=== PATIENT | male | born 1955 | race Caucasian/White ===

== ENCOUNTER → 2017-08-07 | Outpatient (CLI) | payer BC ==
[~2017-08-07] MED LIST: KEFLEX500 MG PO; LISINOPRIL10 MG PO
== END | disposition home or self-care (01) ==
LOC: CDC 11:35
DX: I45.4 Nonspecific intraventricular block (principal)
CPT/HCPCS: 93000

== ENCOUNTER 2017-08-23 18:22 | Observation (INO) | payer BC ==
[~2017-08-23] VITALS: Ht 170.2 cm; Wt 91.0 kg
[2017-08-23 18:43] LABS: HEMATOCRIT 37.8 % (38.0-50.0); MCH 29.2 PG (29.0-34.0); MCHC 33.6 G/DL (30.0-36.0); MCV 86.9 FL (86-99); MEAN PLAT.VOLUME 9.2 uM^3 (9.0-12.4); PLATELET COUNT 195 K/uL (156-360); RBC DIS.WIDTH-CV 12.1 % (11.8-14.6); RBC DIS.WIDTH-SD 38.9 % (39-53); RED BLOOD COUNT 4.35 M/uL (4.00-5.50); WHITE BLOOD COUNT 6.5 K/uL (4.1-10.2)
[2017-08-23 18:55] LABS: CHLORIDE 109 mEq/L (99-109); POTASSIUM 3.8 mEq/L (3.7-5.4); SODIUM 142 mEq/L (136-147)
[2017-08-23 18:57] LABS: GLUCOSE 164 mg/dL (70-99)
[2017-08-23 18:58] LABS: ANION GAP 11 MEQ/L (2-14)
[2017-08-23 19:00] LABS: GFR ESTIMATE (CALCULATED) > 59 mL/min/
[2017-08-23 19:01] LABS: UREA NITROGEN (BUN) 28 mg/dL (9-23)
[2017-08-23 19:07] LABS: TROP-I INTERPRETATION NEGATIVE; TROPONIN-I < 0.01 ng/mL (0.0-0.30)
[2017-08-23] MEDS ORDERED: LO-DOSE ASPIRIN81 M2 PO (19:36)
[2017-08-23] MEDS ORDERED: HYTRIN5 MG PO (19:36)
[2017-08-24 00:11] LABS: TOTAL BILIRUBIN 0.3 mg/dL (0.0-1.0)
[2017-08-24 00:12] LABS: ALKALINE PHOSPHATASE 52 IU/L (3-129)
[2017-08-24 00:15] VITALS: BP 139/78
[2017-08-24 00:15] LABS: DIRECT BILIRUBIN 0.1 mg/dL (0.0-0.3)
[2017-08-24 01:23] LABS: AMPHETAMINE NEGATIVE (500 ng/mL); BARBITURATES NEGATIVE (200 ng/mL); BENZODIAZEPINES NEGATIVE (150 ng/mL); COCAINE NEGATIVE (150 ng/mL); INTERNAL CONTROLS VALID? YES; METHADONE NEGATIVE (200 ng/mL); METHAMPHETAMINE NEGATIVE (500 ng/mL); OPIATES (MORPHINE) NEGATIVE (100 ng/mL); OXYCODONE NEGATIVE (100 ng/mL); PHENCYCLIDINE NEGATIVE (25 ng/mL); PROPOXYPHENE NEGATIVE (300 ng/mL); THC CANNABINOIDS NEGATIVE (50 ng/mL); TRICYCLIC ANTIDEPRESSANTS NEGATIVE (300 ng/mL)
[2017-08-24 02:10] LABS: TROP-I INTERPRETATION NEGATIVE; TROPONIN-I 0.01 ng/mL (0.0-0.30)
[2017-08-24 04:00] VITALS: BP 137/76
[2017-08-24 07:13] LABS: HEMATOCRIT 38.6 % (38.0-50.0); MCH 30.1 PG (29.0-34.0); MCHC 33.9 G/DL (30.0-36.0); MCV 88.7 FL (86-99); MEAN PLAT.VOLUME 9.2 uM^3 (9.0-12.4); PLATELET COUNT 180 K/uL (156-360); RBC DIS.WIDTH-CV 12.5 % (11.8-14.6); RBC DIS.WIDTH-SD 40.9 % (39-53); RED BLOOD COUNT 4.35 M/uL (4.00-5.50); WHITE BLOOD COUNT 5.9 K/uL (4.1-10.2)
[2017-08-24 07:35] LABS: ANION GAP 4 MEQ/L (2-14); CHLORIDE 112 MEQ/L (99-109); GFR ESTIMATE (CALCULATED) > 59 mL/min/; POTASSIUM 3.9 MEQ/L (3.7-5.4); SAMPLE HEMOLYSIS CHECK 0; SAMPLE ICTERIC CHECK 0; SAMPLE LIPEMIA CHECK 0; SODIUM 144 MEQ/L (136-147); UREA NITROGEN (BUN) 18 mg/dL (9-23)
[2017-08-24 07:36] LABS: GLUCOSE 74 mg/dL (70-99)
[2017-08-24 07:40] LABS: TROP-I INTERPRETATION NEGATIVE; TROPONIN-I 0.02 ng/mL (0.0-0.30)
[2017-08-24 11:05] VITALS: BP 156/90
[2017-08-24 15:42] VITALS: BP 123/75
[2017-08-24 19:30] VITALS: BP 126/73
[2017-08-25 00:57] VITALS: BP 122/62
[2017-08-25 02:49] VITALS: BP 124/60
[2017-08-25 06:05] LABS: HEMATOCRIT 40.1 % (38.0-50.0); MCH 29.5 PG (29.0-34.0); MCHC 33.4 G/DL (30.0-36.0); MCV 88.3 FL (86-99); MEAN PLAT.VOLUME 9.4 uM^3 (9.0-12.4); PLATELET COUNT 201 K/uL (156-360); RBC DIS.WIDTH-CV 12.5 % (11.8-14.6); RBC DIS.WIDTH-SD 40.5 % (39-53); RED BLOOD COUNT 4.54 M/uL (4.00-5.50); WHITE BLOOD COUNT 6.1 K/uL (4.1-10.2)
[2017-08-25 06:27] LABS: ANION GAP 7 MEQ/L (2-14); CHLORIDE 108 MEQ/L (99-109); GFR ESTIMATE (CALCULATED) > 59 mL/min/; GLUCOSE 82 mg/dL (70-99); SAMPLE HEMOLYSIS CHECK 0; SAMPLE ICTERIC CHECK 0; SAMPLE LIPEMIA CHECK 0; SODIUM 143 MEQ/L (136-147); UREA NITROGEN (BUN) 18 mg/dL (9-23)
[2017-08-25 08:00] VITALS: BP 164/74
[2017-08-25] MEDS ORDERED: LISINOPRIL10 MG PO (10:58)
[2017-08-25 11:22] VITALS: BP 141/83
== END 2017-08-25 12:48 | disposition home or self-care (01) ==
LOC: EME → EDBD 18:22 → EDOF 22:21 → ENRESERV 22:24 → 4EAST 08-24 00:18
PROVIDERS: Emergency Medicine; Hospitalist; Internal Medicine
DX: R55 Syncope and collapse (principal); I46.9 Cardiac arrest, cause unspecified; I95.2 Hypotension due to drugs; T44.6X5A Adverse effect of alpha-adrenoreceptor antagonists, initial encounter; T46.4X5A Adverse effect of angiotensin-converting-enzyme inhibitors, initial encounter; R51 Headache; I10 Essential (primary) hypertension; E78.5 Hyperlipidemia, unspecified; N40.0 Benign prostatic hyperplasia without lower urinary tract symptoms; E66.9 Obesity, unspecified; Z68.31 Body mass index [BMI] 31.0-31.9, adult; Z82.49 Family history of ischemic heart disease and other diseases of the circulatory system; Z80.6 Family history of leukemia
CPT/HCPCS: 70496; 70498; 71010; 71275; 80048; 80076; 80306 90; 83735; 83880; 84484; 85027; 93005; 99281; 99285; G0378; J7030

== ENCOUNTER → 2017-10-21 | Outpatient (CLI) | payer BC ==
[~2017-10-21] MED LIST changes: +HYTRIN5 MG PO; +LO-DOSE ASPIRIN81 M2 PO
== END | disposition home or self-care (01) ==
LOC: CDC 11:39
DX: Z01.810 Encounter for preprocedural cardiovascular examination (principal)
CPT/HCPCS: 93000